=== PATIENT | male | born 1980 | race Caucasian/White ===

== ENCOUNTER 2025-04-18 14:40 | Outpatient (REF) | payer MEDICAID, SELFPAY ==
--- OUTSIDE RECORDS SUMMARY | 2025-04-18 14:00 | XMS_ITS | Encounter Summary ---
Author Organization [employer] Address [address] [facility] 7[address] [place] [address] Care Team Providers Care Gold Leaf Roller Name Role Phone Name, Thiago CHOI Primary Care Provider [phone] Reason for Visit * Reason Comments New Patient visit Encounter Details Date Type Department Care Team (Late st Contact Info) Description 04/18/2025 2:00 PM EST Office Visit [facility] [address] [place], [place] [phone] Name, MD Thiago [address] [place] [address] Asthma, unspecified asthma severity, unspecified whether complicated, unspecified whether persistent (Primary Dx); Status post pneumonectomy; Hypertension, unspecified type; History of high cholesterol; Encounter for immunization Social History Tobacco Use Types Packs/Day Years Used Date Smoking Tobacco: Never Smokeless Tobacco: Never Tobacco Cessation:Counseling Given: Not Answered Alcohol Answer Date Recorded How often do you have a drink containing alcohol ? 2 04/18/2025 How many drinks containing a lcohol do you have on a typical day when you are drinking? 1 04/18/2025 Frequency of Binge Drinking Not on file 03/22 Depression Answer Date Recorded Patient Health Questionnaire-9 Score 0 04/18/2025 Patient Health Questionnaire-9 Score 0 04/18/2025 Last PHQ-9: Questionnaire Data Not on file 1 Housing Stability Answer Date Recorded What is your housing situation today? I have herman pinedo 04/04/[address] you li ve. Do you have problems with any of the following? None of the above 04/04/2025 Food Insecurity Answer Date Recorded Within the past 12 months, y ou worried that your food would run out before you got money to buy more: Never True 04/04/2025 Within the past 12 months,th e food you bought just didn't last and you didn't have enough money to get more: Never True Transportation Answer Date Recorded In the past 12 months, has l ack of transportation kept you from medical appts, meetings, work or from getting things needed for daily living? Yes, it has kept me from medical appointments or getting medications. 04/04/2025 Utilities Answer Date Recorded In the past 12 months, has t he electric, gas, oil or water company threatened to shut off services in your home? No 04/04/2025 Depression Answer Date Recorded Patient Health Questionnaire-2 Score 0 04/18/2025 Internet Access Answer Date Recorded Internet Access Q1 Yes 04/04/2025 Internet Access Q2 Not on file 04/04/2025 Sex and Gender Information Value Date Recorded Sex Assigned at Male 04/05/2025 9:43 AM EST Legal Sex Male 11:04 AM EDT Gender Identity Male 04/05/2025 9:43 AM EST Sexual Orientation Straight 04/05/2025 9: 43 AM EST documented as of this encounter Last Filed Vital Signs Vital Sign Reading Time Taken Comments Blood Pressure 160/90 04/18/2025 2:11 PM EST Pulse 72 04/18/2025 1:53 PM EST Temperature 36.1 C (96.9 F) 04/18/2025 1:53 PM EST Respiratory Rate 20 04/18/2025 1:53 PM EST Oxygen Saturation 94% 04/18/2025 1:53 PM EST Inhaled Oxygen Concentration - - Weight 83.6 kg (184 lb 6.4 oz) 04/18/2025 1:53 P M EST Height 165.1 cm (5' 5 ) 04/18/2025 1:53 PM EST Body Mass Index 30.69 04/18/2025 1:53 PM EST documented in this encounter Functional Status * Audit Alcohol Screening Question Answer Date of Assessment Author How often do you have a drin k containing alcohol? 2 04/18/2025 2:06 PM EST Thiago Gordon MD How many drinks containing a lcohol do you have on a typical day when you are drinking? 1 04/18/2025 2:06 PM EST Thiago Gordon MD Audit-C Score 3 04/18/2025 2:06 PM Thiago Leung MD How often during the last ye ar have you found that you were not able to stop drinking once you had started? 0 04/18/2025 2:06 PM Thiago Leung MD How often during the last ye ar have you failed to do what was normally expected from you because of drinking? 0 04/18/2025 2:06 PM Maria Luisa Leung MD How often during the last ye ar have you been unable to remember what happened the night before because you had been drinking? 0 04/18/2025 2:06 PM Thiago Leung MD How often during the last ye ar have you needed an alcoholic drink first thing in the morning to get yourself going after a night of heavy drinking? 0 04/18/2025 2:06 PM Thiago Leung MD How often during the last ye ar have you had a feeing of guilt or remorse after drinking? 0 04/18/2025 2:06 PM Thiago Leung MD Have you or someone else bee n injured as a result of your drinking? 0 04/18/2025 2:06 PM Maria Luisa Leung MD Has a relative, friend, doct or, or another health professional expressed concern about your drinking or suggested you cut down? 0 04/18/2025 2:06 PM Thiago Leung MD * Over the past 2 weeks, how often have you been bothered by any of the following problems? Question Answer Date of Assessment Author Patient Health Questionnaire-2 Score 0 03/22 3:03 PM Petty Rodriguez MA * Little interest or pleasure in doing things Answer Date of Assessment Author Not at all 04/18/2025 3:03 PM Yahir Rodriguez MA * Feeling down, depressed, or hopeless Answer Date of Assessment Author Not at all 04/18/2025 3:03 PM Yahir Rodriguez MA * Trouble falling or staying asleep, or sleeping too much Answer Date of Assessment Author Not at all 04/18/2025 3:03 PM Yahir Rodriguez MA * Feeling tired or having little energy Answer Date of Assessment Author Not at all 04/18/2025 3:03 PM Yahir Rodriguez MA * Poor appetite or overeating Answer Date of Assessment Author Not at all 04/18/2025 3:03 PM Yahir Rodriguez MA * Feeling bad about yourself - or that you are a failure or have let yourself or your family down Answer Date of Assessment Author Not at all 04/18/2025 3:03 PM Yahir Rodriguez MA * Trouble concentrating on things, such as reading the newspaper or watching television Answer Date of Assessment Author Not at all 04/18/2025 3:03 PM Yahir Rodriguez MA * Moving or speaking so slowly that other people could have noticed? Or the opposite - being so fidgety or restless that you have been moving around a lot more than usual. Answer Date of Assessment Author Not at all 04/18/2025 3:03 PM Yahir Rodriguez MA * Thoughts that you would be better off or hurting yourself in some way Answer Date of Assessment Author Not at all 04/18/2025 3:03 PM Yahir Rodriguez MA * Patient Health Questionnaire-9 Score Answer Date of Assessment Author 0 04/18/2025 3:03 PM EDOUARD Ocoha, Yahir cano MA * Over the last 2 weeks, how often have you been bothered by any of the following problems? Question Answer Date of Assessment Author Feeling nervous, anxious, or on edge 1 03/22 3:03 PM Petty Rodriguez MA Not being able to stop or co ntrol worrying 0 04/18/2025 3:03 PM Petty Rodriguez MA Worrying too much about diff erent things 1 04/18/2025 3:03 PM Petty Rodriguez MA Trouble relaxing 1 04/18/2025 3:03 PM Petty Mena MA Being so restless that it is hard to sit still 0 04/18/2025 3:03 PM Petty Rodriguez MA Becoming easily annoyed or irritable 0 03/22 3:03 PM Petty Rodriguez MA Feeling afraid as if somethi ng awful might happen 0 04/18/2025 3:03 PM Petty Rodriguez MA TORY-7 Total Score 3 04/18/2025 3:03 PM Petty Rodriguez MA documented as of this encounter Progress Notes * Thiago Gordon MD - 04/18/2025 2:00 PM EST Subjective Patient ID: Jamie Arrington is a 45 y.o. male who presents for New Patient visit. Patient comes today for the first time to the clinic. He recently arrived from [place]. The patient wants to restart on medications he was using [place]. He has a personal history of hypertension, he used to be treated for high cholesterol and he explains to me that he has asthma as well. 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 The patient has never been a smoker. He was using Breo once a day in [place] with very good control of asthma symptoms. The patient rarely uses albuterol. He does not drink alcohol in excess. He does not use illicit drugs. He agrees to have flu vaccination today. He does not have any of his previous medical records with him. Review of Systems Constitutional: Negative for chills, fatigue and fever. HENT: Negative for sore throat. Respiratory: Negative for cough, chest tightness and shortness of breath. Cardiovascular: Negative for chest pain, palpitations and leg swelling. Gastrointestinal: Negative for abdominal pain and blood in stool. Objective Vitals: 04/18/25 1353 04/18/25 1411 BP: (!) 164/100 (!) 160/90 BP Location: Left arm Patient Position: Sitting BP Cuff Size: Adult Pulse: 72 Resp: 20 Temp: 96.9 ??F (36.1 ??C) TempSrc: Oral SpO2: 94% Weight: 184 lb 6.4 oz (83.6 kg) Height: 5' 5 (1.651 m) Physical Exam Constitutional: Appearance: Normal appearance. Cardiovascular: Rate and Rhythm: Normal rate and regular rhythm. Heart sounds: No murmur heard. Pulmonary: Effort: Pulmonary effort is normal. No respiratory distress. Breath sounds: No wheezing, rhonchi or rales. Chest: Comments: The patient has a large scar on the right posterior hemithorax consistent with his previous history of partial right lung resection. His lungs are clear to auscultation. Abdominal: Palpations: Abdomen is soft. Tenderness: There is no abdominal tenderness. Musculoskeletal: Right lower leg: No edema. Left lower leg: No edema. Neurological: Mental Status: He is alert. Assessment/Plan Diagnoses and all orders for this visit: Asthma, unspecified asthma severity, unspecified whether complicated, unspecified whether persistent Comments: I agreed to restart Breo for asthma prevention, we also prescribed rescue albuterol to be used as needed. On future visits I will send for X-rays to have a baseline but he asked to try to get his previous medical records form [place]. Orders: - CBC auto differential; Future - Comprehensive Metabolic Panel; Future - Lipid Panel, Standard; Future Status post pneumonectomy Comments: Partial on the right lung about 10 years ago. Not due to malignancy. He is encouraged to get his previous medical records. Orders: - CBC auto differential; Future - Comprehensive Metabolic Panel; Future - Lipid Panel, Standard; Future Hypertension, unspecified type Comments: Start amlodipine 2.5 mg once a day, BP check with the nurses next week. Check fasting blood work listed below. Orders: - CBC auto differential; Future - Comprehensive Metabolic Panel; Future - Lipid Panel, Standard; Future History of high cholesterol - CBC auto differential; Future - Comprehensive Metabolic Panel; Future - Lipid Panel, Standard; Future Encounter for immunization Comments: Flu vaccine today. Orders: - FLU VACCINE TRIVALENT [id number] (Fluarix) 19 yrs + Other orders - amLODIPine (Norvasc) 2.5 MG tablet; Take 2 tablets (5 mg) by mouth Once per day. - Fluticasone Furoate-Vilanterol (Breo Ellipta) 100-25 MCG/ACT aerosol powder ; Inhale 1 InhalationOnce per day. - albuterol 108 (90 Base) MCG/ACT inhaler; Inhale 2 puffs every 6 (six) hours if needed for wheezing. Future Appointments Date Time Provider Department Center 04/27/2025 11:00 AM [facility] BLUE TEAM NURSE MEDICINE [facility] documented in this encounter Plan of Treatment Upcoming Encounters Date Type Department Care Team (Late st Contact Info) Description 04/27/2025 11:00 AM EST Clinical Support [facility] [address] [place] [phone] Scheduled Orders Name Type Priority Associated Diagnoses Orde r Schedule Comprehensive Metabolic Panel Lab Routine Asthma, unspecified asthma severity, unspecified whether complicated, unspecified whether persistent Status post pneumonectomy Hypertension, unspecified type History of high cholesterol Expected: 04/18/2025 (Approximate), Expires: 04/18/2026 Lipid Panel, Standard Lab Routine Asthma, unspecified asthma severity, unspecified whether complicated, unspecified whether persistent Status post pneumonectomy Hypertension, unspecified type History of high cholesterol Expected: 04/18/2025 (Approximate), Expires: 04/18/2026 documented as of this encounter Procedures Procedure Name Priority Date/Time Associated Diagnosis Comments CBC WITH AUTO DIFFERENTIAL Routine 04/18/2025 2:48 PM EST Asthma, unspecified asthma severity, unspecified whether complicated, unspecified whether persistent Status post pneumonectomy Hypertension, unspecified type History of high cholesterol documented in this encounter Results * (ABNORMAL) CBC auto differential (04/18/2025 2:48 PM EST) White Blood Count 4.7(L) 4.8 - 10.8 X10*3/uL [facility] Red Blood Count 5.37 4.60 - 5.80 X10*6/uL [facility] Hemoglobin 16.0 14.0 - 18.0 g/dl [facility] Hematocrit 47.9 42.0 - 52.0 % [facility] Mean Corpuscular Volume 89.2 80.0 - 98.0 fL [facility] Mean Corpuscular Hemoglobin 29.8 27.0 - 33.0 pg [facility] Mean Corpuscular HGB Conc 33.4 31.0 - 36.0 g/dl [facility] Red Cell Distribution Width 12.2 11.0 - 16.0 % [facility] Platelet Count 243 160 - 400 X10*3/uL [facility] Mean Platelet Volume 10.4 9.4 - 12.4 fL [facility] Neutrophils Percent Auto 63.8 45 - 73 % [facility] Imm Gran Pct Auto 0.2 0.0 - 0.4 % [facility] Lymphocytes Percent Auto 23.3 20 - 40 % [facility] Monocytes Percent Auto 9.0 2 - 11 % [facility] Eosinophils Percent Auto 2.4 0 - 4 % [facility] Basophils Percent Auto 1.3 0 - 2 % [facility] NRBC Pct Auto 0.0 0.0 - 0.2 /100WBC [facility] Neutrophils Absolute Auto 3.0 2.0 - 8.3 x10*3/uL [facility] Imm Gran Abs Auto 0.01 0.00 - 0.03 X10*3/uL [facility] Lymphocytes Absolute Auto 1.1(L) 1.2 - 4.9 X10*3/uL [facility] Monocytes Absolute Auto 0.4 0.1 - 1.2 X10*3/uL [facility] Eosinophils Absolute Auto 0.1 0.0 - 0.4 X10*3/uL [facility] Basophils Absolute Auto 0.1 0.0 - 0.2 X10*3/uL [facility] NRBC Abs Auto 0.000 0.0 - 0.012 X10*3/uL [facility] Blood Venous blood specimen / Unknown 04/18/2025 2:48 PM EST 04/18/2025 4:19 PM EST Thiago Gordon MD LAB BLOOD ORDERABLES Final Resul t [facility] [address] [place] [address] [phone] documented in this encounter Visit Diagnoses Diagnosis Asthma, unspecified asthma severity, unspecified whether complicated, unspecified whether persistent- Primary Status post pneumonectomy Acquired absence of organ, lung Hypertension, unspecified type History of high cholesterol Encounter for immunization documented in this encounter Additional Health Concerns Assessment Noted Time PHQ-9 Depression Total Score: 0 04/18/20 25 3:03 PM EST documented as of this encounter Care Teams Gold Leaf Roller Relationship Specialty Start Date End Date Name, MD Thiago [address] [place] [phone] PCP - General Internal Medicine 04/18/25 documented as of this encounter
[2025-04-18 16:21] LABS: MANUAL DIFF FLAG NO
[2025-04-18 16:42] LABS: Hematocrit 47.9 % (42.0-52.0); Hemoglobin 16.0 g/dl (14.0-18.0); Imm Gran Abs Auto 0.01 X10*3/uL (0.00-0.03); Imm Gran Pct Auto 0.2 % (0.0-0.4); Lymphocytes Absolute Auto 1.1 X10*3/uL (1.2-4.9); Mean Corpuscular HGB Conc 33.4 g/dl (31.0-36.0); Mean Corpuscular Hemoglobin 29.8 pg (27.0-33.0); Mean Corpuscular Volume 89.2 fL (80.0-98.0); NRBC Abs Auto 0.000 X10*3/uL (0.0-0.012); NRBC Pct Auto 0.0 /100WBC (0.0-0.2); Platelet Count 243 X10*3/uL (160-400); Red Blood Count 5.37 X10*6/uL (4.60-5.80); White Blood Count 4.7 X10*3/uL (4.8-10.8)
--- OUTSIDE RECORDS SUMMARY | 2025-04-18 17:05 | XMS_ITS | Clinical Summary ---
Author Organization [employer] Address [address] [facility] [address] [place] [address] Care Team Providers Care Outreach Team Member Name Role Phone Name, Thiago CHOI Primary Care Provider [phone] Allergies No known active allergies Medications amLODIPine (Norvasc) 2.5 MG tablet Take 2 tablets (5 mg) by mouth Once per day. 60 tablet 11 5 04/18/20 26 Active Fluticasone Furoate-Vilante rol (Breo Ellipta) 100-25 MCG/ACT aerosol powder Inhale 1 Inhalation Once per day. 60 each 2 5 Active albuterol 108 (90 Base) MCG/ACT inhaler Inhale 2 puffs every 6 (six) hours if needed for wheezing. 18 g 11 5 04/18/20 26 Active Active Problems Problem Noted Date Diagnosed Date Asthma 04/18/2025 Status post pneumonectomy 04/18/2025 Overview (04/18/2025): Partial on the right lung about 10 years ago Hypertension 04/18/2025 Encounters Date Type Department Care Team Description 04/18/2025 2:00 PM EST Office Visit [facility] [address] [place] [phone] Name, MD Thiago Asthma, unspecified asthma severity, unspecified whether complicated, unspecified whether persistent (Primary Dx); Status post pneumonectomy; Hypertension, unspecified type; History of high cholesterol; Encounter for immunization 04/18/2025 Travel 04/04/2025 Patient Outreach [facility] [address] [place] [phone] Hiral Milton Care Coordination (C3CM/CHW ARIANNA Moy- [facility] assistance) 04/04/2025 Patient Outreach [facility] [address] [place] [address] Name, MD Thiago Pre-visit Planning (SDOH Screening positive and Tobacco screening negative) 03/23/2025 Population Health Risk Score Community [facility] () Department [address] [place] [phone] Provider, Population Health Generic from Last 3 Months Immunizations Immunization Administration Dates Next Due Influenza, seasonal, injectable, preservative fr ee 04/18/2025 Social History Tobacco Use Types Packs/Day Years [...] Orientation Straight 04/05/2025 9: 43 AM EST Last Filed Vital Signs Vital Sign Reading [...] Mass Index 30.69 04/18/2025 1:53 PM EST Plan of Treatment Upcoming Encounters Date Type Department Care Team (Late st Contact Info) Description 04/27/2025 11:00 AM EST Clinical Support [facility] [address] [place] [phone] Health Maintenance Due Date Last Done Comments CT Colonography 1978 Colonoscopy 1978 Colorectal Cancer Screening 1978 FIT DNA/Cologuard 1978 FIT 1978 FOBT 1978 HIV Screening 1978 Lipid Panel 1978 Sigmoidoscopy 1978 Family Planning (PISQ) 1993 Hepatitis C Screening 1996 DTaP/Tdap/Td Vaccines (1 - Tdap) 1997 Hepatitis B Vaccines (1 of 3 - 19+ 3-dose series) 1997 Pneumococcal Vaccine: Pediatrics (0 to 5 Years) and At-Risk Patients (6 to 49) Years (1 of 2 - PCV) 1997 COVID-19 Vaccine (1 - 2024-2 6 season) 2024 SDOH Screening 04/04/2026 04/04/2025 Alcohol/Substance Use Screening 04/18/2026 04/18/2025 Depression Screening 04/18/2026 04/18/2025, 04/18/2025 Disability Screening 04/18/2026 04/18/2025 Tobacco Screening 04/18/2026 04/18/2025 Zoster Vaccines (1 of 2) 2028 RSV Patients and Patients Aged 60 years or older (1 - 1-dose 75+ series) 2053 Influenza Vaccine Completed 04/18/2025 HIB Vaccines Aged Out No longer eligi ble based on patient's age to complete this topic HPV Vaccines Aged Out No longer eligi ble based on patient's age to complete this topic Hepatitis A Vaccines Aged Out No long er eligible based on patient's age to complete this topic IPV Vaccines Aged Out No longer eligi ble based on patient's age to complete this topic Meningococcal B Vaccine Aged Out No l onger eligible based on patient's age to complete this topic Meningococcal Vaccine Aged Out No jaclyn briana eligible based on patient's age to complete this topic RSV under 20 months Aged Out No longe r eligible based on patient's age to complete this topic Rotavirus Vaccines Aged Out No longer eligible based on patient's age to complete this topic Procedures Procedure Name Priority Date/Time Associated Diagnosis Comments CBC WITH AUTO DIFFERENTIAL Routine 04/18/2025 2:48 PM EST Asthma, unspecified asthma severity, unspecified whether complicated, unspecified whether persistent Status post pneumonectomy Hypertension, unspecified type History of high cholesterol from Last 3 Months Results * (ABNORMAL) CBC auto differential (04/18/2025 2:48 PM EST) White Blood Count 4.7(L) 4.8 - 10.8 X10*3/uL [facility] Red Blood Count 5.37 4.60 - 5.80 X10*6/uL [facility] Hemoglobin 16.0 14.0 - 18.0 g/dl [facility] Hematocrit 47.9 42.0 - 52.0 % [facility] Mean Corpuscular Volume 89.2 80.0 - 98.0 fL [facility] Mean Corpuscular Hemoglobin 29.8 27.0 - 33.0 pg [facility] Mean Corpuscular HGB Conc 33.4 31.0 - 36.0 g/dl [facility] Red Cell Distribution Width 12.2 11.0 - 16.0 % [facility] Platelet Count 243 160 - 400 X10*3/uL [facility] Mean Platelet Volume 10.4 9.4 - 12.4 fL [facility] Neutrophils Percent Auto 63.8 45 - 73 % [facility] Imm Gran Pct Auto 0.2 0.0 - 0.4 % [facility] Lymphocytes Percent Auto 23.3 20 - 40 % [facility] Monocytes Percent Auto 9.0 2 - 11 % [facility] Eosinophils Percent Auto 2.4 0 - 4 % [facility] Basophils Percent Auto 1.3 0 - 2 % [facility] NRBC Pct Auto 0.0 0.0 - 0.2 /100WBC [facility] Neutrophils Absolute Auto 3.0 2.0 - 8.3 x10*3/uL [facility] Imm Gran Abs Auto 0.01 0.00 - 0.03 X10*3/uL [facility] Lymphocytes Absolute Auto 1.1(L) 1.2 - 4.9 X10*3/uL [facility] Monocytes Absolute Auto 0.4 0.1 - 1.2 X10*3/uL [facility] Eosinophils Absolute Auto 0.1 0.0 - 0.4 X10*3/uL [facility] Basophils Absolute Auto 0.1 0.0 - 0.2 X10*3/uL [facility] NRBC Abs Auto 0.000 0.0 - 0.012 X10*3/uL [facility] Blood Venous blood specimen / Unknown 04/18/2025 2:48 PM EST 04/18/2025 4:19 PM EST us Thiago Gordon MD LAB BLOOD ORDERABLES Final Resul t [facility] [address] [place], [place] [phone] from Last [address] [place] [address] [address] C3 Care Teams Outreach Team Member Relationship Specialty Start Date End Date Name, MD Thiago [address] [place] [address] PCP - General Internal Medicine 04/18/25
--- OUTSIDE RECORDS SUMMARY | 2025-04-18 17:05 | XMS_ITS | Encounter Summary ---
Author Organization [employer] Address [address] [facility] [address] [address] [place] [address] Care Team Providers Care [employer] Field Technician Name Role Phone Name, Thiago CHOI Primary Care Provider [phone] Encounter Details Date Type Department Care Team (Latest Contact Info) Description 04/18/2025 Travel Social History Tobacco Use Types Packs/Day Years Used Date Smoking Tobacco: Never Smokeless Tobacco: Never Alcohol Answer Date Recorded How often do [...] AM EST documented as of this encounter Plan of Treatment Upcoming Encounters Date Type Department Care Team (Late st Contact Info) Description 04/27/2025 11:00 AM EST Clinical Support [facility] [address] [place] [address] documented as of this encounter Visit Diagnoses Not on filedocumented in this encounter Additional Health Concerns Assessment Noted Time PHQ-9 Depression Total Score: 0 04/18/20 3:03 PM EST documented as of this encounter Care Teams [employer] Field Technician Relationship Specialty Start Date End Date Name, MD Thiago [address] [place] [address] PCP - General Internal Medicine 04/18/25 documented as of this encounter
[2025-04-18 18:00] LABS: Alanine Aminotransferase 30 U/L (0-40); Albumin Level 5.0 g/dL (3.5-5.0); Alkaline Phosphatase 86 U/L (39-117); Anion Gap 10 (12-20); Aspartate Amino Transferase 26 U/L (5-37); Blood Urea Nitrogen 16 mg/dL (9-16); Calcium 10.1 mg/dL (8.4-10.2); Carbon Dioxide 28 mmol/L (22-29); Chloride 105 mmol/L (96-108); Cholesterol 241 mg/dL (<200); Estimated Glomerular Filt Rate > 60; HDL Cholesterol 47 mg/dL (>40); Potassium 4.4 mmol/L (3.3-5.1); Sodium 139 mmol/L (135-145); Total Protein 8.0 g/dL (6.5-8.0); Triglycerides 292 mg/dL (<150)
== END 2025-04-18 14:41 | disposition home or self-care (01) ==
LOC: HO.HHCL 14:40
PROVIDERS: PCP Internal Medicine Geriatric Medicine; Visit Provider Internal Medicine Geriatric Medicine
DX: I10 Essential (primary) hypertension (principal); J45.909 Unspecified asthma, uncomplicated; Z90.2 Acquired absence of lung [part of]; Z86.39 Personal history of other endocrine, nutritional and metabolic disease
CPT/HCPCS: 36415; 80053; 80061; 85025